=== PATIENT | female | born 1970 | race Caucasian/White ===

== ENCOUNTER 2020-03-01 18:16 | Emergency (ER) | payer OTHER ==
[~2020-03-01] VITALS: Ht 175.3 cm; Wt 68.0 kg
--- OUTSIDE RECORDS SUMMARY | 2020-03-01 18:19 | XMS REPORT | Clinical Summary ---
Author Author [facility] Address Unknown Phone Unavailable Care Team Providers Care Real Estate Associate Name Role Phone Ba Yusuf MD PCP Allergies Comments Active Allergy Reactions Severity Noted Date Penicillins 12/27/2015 Medications Not on file Active Problems Problem Noted Date Anxiety 12/27/2015 Bipolar affective disorder 12/27/2015 Depression 12/27/2015 Dizziness 12/27/2015 Headache 12/27/2015 Upper respiratory infection 12/27/2015 Vertigo 12/27/2015 Social History Date Tobacco Use Types Packs/Day Years Used Never Assessed Sex Assigned at Date Recorded Not on file Industry Job Start Date Occupation Not on file Not on file Not on file Travel End Travel History Travel Start No recent travel history available. Last Filed Vital Signs Not on file Plan of Treatment Not on file Results Not on fileafter 03/01/2019 Advance Directives For more information, please contact: [phone] Patient Shorthand Teacher Explanation Type Date Recorded Advance Directives, 05/18/2016 2:59 AM Living Will and Medical Power of Instructor Pilot
--- OUTSIDE RECORDS SUMMARY | 2020-03-01 18:19 | XMS REPORT | Summary of Care ---
Author Author [facility] - Health Organization [facility] - Health Address Unknown Phone Unavailable Care Team Providers Care Band Saw Marker Name Role Phone Pcp, Patient Does Not Have A PCP [phone] Reason for Visit * Reason Comments Sore Throat Fever Shortness of Breath Encounter Details Care Team Description Date Type Department Unknown, Attending Douglas Alvarez, [facility] [address] [place] [address] [phone] Viral illness (Primary Dx); Exposure to potential infection 12/30/2019 Urgent Care [facility] [address] [place] [phone] Allergies Comments Active Allergy Reactions Severity Noted Date Penicillin Hives 12/30/2019 documented as of this encounter (statuses as of 12/30/2019) Medications No known medicationsdocumented as of this encounter (statuses as of 12/30/2019) Active Problems Problem Noted Date AML (acute myeloid leukemia) 12/30/2019 Anxiety 12/27/2015 Depression 12/27/2015 Vertigo 12/27/2015 Headache 12/27/2015 documented as of this encounter (statuses as of 12/30/2019) Social History Date Tobacco Use Types Packs/Day Years Used Never Smoker Smokeless Tobacco: Never Used Drinks/Week oz/Week Comments Alcohol Use Not Currently Sex Assigned at Date Recorded Not on file Industry Job Start Date Occupation Not on file Not on file Not on file Travel End Travel History Travel Start No recent travel history available. documented as of this encounter Last Filed Vital Signs Reading Time Taken Comments Vital Sign 156/90 12/30/2019 7:45 PM CDT Blood Pressure 78 12/30/2019 7:45 PM CDT Pulse 36.8 C (98.3 F) 12/30/2019 7:45 PM CDT Temperature 22 12/30/2019 7:45 PM CDT Respiratory Rate 100% 12/30/2019 7:45 PM CDT Oxygen Saturation - - Inhaled Oxygen Concentration 81.1 kg (178 lb 12.7 oz) 12/30/2019 7:45 PM CDT Weight - - Height - - Body Mass Index documented in this encounter Progress Notes * Douglas Alvarez, [employer] - 12/30/2019 7:30 PM CDT Cc: Chief Complaint Patient presents with Sore Throat Fever Shortness of Breath Sabrina Whitlock is a 49 year old female who presents to c/o fever t max 103 w ith associated symptoms of decreased appetite, chills, congestion, sore throat, SOB, body aches, & N/V. Pt denies exposure to sick contacts or known persons with COVID. SUBJECTIVE CC: Sore Throat; Fever; and Shortness of Breath PCP : PATIENT DOES NOT HAVE A PCP Fever Max temp prior to arrival: 103 Temp source: Oral Severity: Severe Onset quality: Gradual Duration: 2 days Timing: Intermittent Progression: Waxing and waning Chronicity: New Relieved by: Acetaminophen and ibuprofen Worsened by: Nothing Ineffective treatments: Electrolyte drinks Associated symptoms: chills, congestion, myalgias, nausea, sore throat and vomit ing Associated symptoms: no chest pain, no cough, no diarrhea, no ear pain, no heada ches, no rash and no rhinorrhea Risk factors: immunosuppression Risk factors: no recent travel and no sick contacts Allergies Sabrina is allergic to penicillin. Medications No outpatient medications prior to visit. No facility-administered medications prior to visit. Histories Past Medical History: Diagnosis Date AML (acute myeloid leukemia) Anxiety Depression Vertigo Past Surgical History: Procedure Laterality Date APPENDECTOMY HYSTERECTOMY OTHER Partial R nephrectomy Social History Socioeconomic History Marital status: Single Spouse name: Not on file Number of children: Not on file Years of education: Not on file Highest education level: Not on file Occupational History Not on file Social Needs Financial resource strain: Not on file Food insecurity: Worry: Not on file Inability: Not on file Transportation needs: Medical: Not on file Non-medical: Not on file Tobacco Use Smoking status: Never Smoker Smokeless tobacco: Never Used Substance and Sexual Activity Alcohol use: Not Currently Drug use: Never Sexual activity: Not Currently Lifestyle Physical activity: Days per week: Not on file Minutes per session: Not on file Stress: Not on file Relationships Social connections: Talks on phone: Not on file Gets together: Not on file Attends evangelical service: Not on file Active member of club or organization: Not on file Attends meetings of clubs or organizations: Not on file Relationship status: Not on file Intimate partner violence: Fear of current or ex partner: Not on file Emotionally abused: Not on file Physically abused: Not on file Forced sexual activity: Not on file Other Topics Concern Not on file Social History Narrative Not on file Family History Problem Relation Age of Onset Hypertension Mother Heart Mother COPD (chronic obstructive pulmonary disease) Mother Alzheimers dementia Mother Cancer Father Review of Systems Constitutional: Positive for appetite change, chills and fever. Negative for act ivity change and fatigue. HENT: Positive for congestion and sore throat. Negative for ear pain, postnasal drip and rhinorrhea. Eyes: Negative for pain, discharge and itching. Respiratory: Positive for shortness of breath. Negative for cough, chest tightne ss and wheezing. Cardiovascular: Negative for chest pain and palpitations. Gastrointestinal: Positive for nausea and vomiting. Negative for abdominal pain, constipation and diarrhea. Genitourinary: Negative for urgency, frequency and difficulty urinating. Musculoskeletal: Positive for myalgias. Negative for back pain and neck pain. Skin: Negative for rash and wound. Neurological: Negative for dizziness, weakness and headaches. Vital Signs BP (!) 156/90 | Pulse 78 | Temp 36.8 C (98.3 F) (Oral) | Resp 22 | Wt 17 8 lb 12.7 oz (81.1 kg) | SpO2 100% Physical Exam Constitutional: She is oriented to person, place, and time. Vital signs are norm al. She appears well-developed and well-nourished. She is active and cooperative . Non-toxic appearance. She does not have a sickly appearance. She appears ill. No distress. HENT: Head: Normocephalic and atraumatic. Right Ear: Hearing, external ear and ear canal normal. No mastoid tenderness. Ty mpanic membrane is not erythematous and not bulging. A middle ear effusion is pr esent. Left Ear: Hearing, external ear and ear canal normal. No mastoid tenderness. Tym panic membrane is not erythematous and not bulging. A middle ear effusion is pre sent. Nose: Rhinorrhea present. Right sinus exhibits no maxillary sinus tenderness and no frontal sinus tenderness. Left sinus exhibits no maxillary sinus tenderness and no frontal sinus tenderness. Mouth/Throat: Uvula is midline, oropharynx is clear and moist and mucous membran es are normal. Eyes: Pupils are equal, round, and reactive to light. Conjunctivae and EOM are n ormal. Neck: Normal range of motion. Neck supple. Cardiovascular: Normal rate and normal heart sounds. Pulmonary/Chest: Effort normal and breath sounds normal. She has no decreased br eath sounds. She has no wheezes. She has no rhonchi. She has no rales. Abdominal: Soft. Bowel sounds are normal. She exhibits no distension. There is n o tenderness. Musculoskeletal: Normal range of motion. Neurological: She is alert and oriented to person, place, and time. Skin: Skin is warm and dry. Nursing note and vitals reviewed. Assessment CRITERIA FOR COVID-[address] [facility] Guidelines: ([email or web address]) Clinical Features & Epidemiologic Risk: 1.Fever or signs/symptoms of lower respiratory illness (e.g. cough or shortness of breath) AND Any person, including health care workers, who has had close cont act with a laboratory-confirmed COVID-19 patient within 14 days of symptom onse t A. No 2. Fever and signs/symptoms of a lower respiratory illness (e.g., cough or short ness of breath) requiring hospitalization AND A history of travel from affected geographic areas within 14 days of symptom onset OR An individual(s) with risk f actors that put them at higher risk of poor outcomes A. No 3.Fever and signs/symptoms of lower respiratory illness (e.g., cough or shortnes s of breath) requiring hospitalization AND No source of exposure has been identi fied A.Yes - Mild ill appearing, NAD noted, VS stable - Decreased appetite, although drinking well, voiding like normal, having regula r bowel movements - Denies travel to [place], [place], [place], [place], [place], [place], or [place] - Denies domestic travel - Denies exposure to sick contacts or known persons with COVID - All staff in appropriate droplet and contact PPE while interacting with patien t. - Influenza Negative - Strept Negative - Denies UTI symptoms, no suprapubic/CVA tenderness - Immunocompromised, no other identified source of fever - Testing sent for COVID-19 Plan 1. Viral illness - POCT FLU A AND B (MOLECULAR) - POCT GRP A STREP (MOLECULAR) 2. Exposure to potential infection - CORONAVIRUS COVID-19 TESTING; Future - Discussed flu/strept results, diagnosis, and treatment plan with pt. All quest ions & concerns were addressed - Pt advised to self quarantine at home until results are back, advised that the y will be notified of the results once received - Pt advised on frequent effective hand washing, use alcohol based hand sanitize r that contains at least 60% alcohol - Pt advised to avoid contact with people & animals until results are received - Pt advised to avoid touching eyes, nose, and mouth with unwashed hands - Pt advised to clean all high risk surfaces - Pt advised will need to wear a face mask when around others/pets - Pt advised to increase fluid intake, ensure to stay hydrated, and get plenty o f rest - "What to do if you are sick with COVID-19" CDC information guide reviewed with the patient and handout given to patient - Pt advised to take OTC antihistamine, decongestant, nasal spray, or cough medi cations as per label recommendations for relieve of allergy symptoms, reduce swe lling in the nose, lessen the amount of mucus, and suppress cough - Pt advised to take OTC medication of choice as per label recommendation as nee ded for pain or fever - Pt verbalized understanding of all instructions FOLLOW UP Pt advised to call 911 or go to the nearest Emergency Department sooner for any worsening, persistent, or concerning symptoms ER precautions given Barriers to care: none Ability to manage care: good Plan of care, goals and medications discussed with patient. Patient voices under standing. This visit did not involve counseling and coordination that comprised more than 50% of the visit time. JÚNIOR Rand 12/30/2019 08:45 PM * Delmi Domingo MA - 12/30/2019 7:30 PM CDT Sabrina Whitlock is a 49 year old female is here for shortness of breath, fever,d ry cough,bodyaches and sore throat. Allergies reviewded and provider will review meds. Physician was notified of pain level. documented in this encounter Plan of Treatment Order Schedule Name Type Priority Associated Diag noses Expected: 12/30/2019, Expires: 1 CORONAVIRUS COVID-19 LAB Routine Exposure to potential TESTING infection Health Maintenance Due Date Last Done Comments DTaP,Tdap,and Td Vaccines 02/21/1983 (1 - Tdap) PAP SMEAR 02/21/1993 Breast Cancer Screening 2012 (MAMMOGRAM) INFLUENZA VACCINE (#1) 2019 PNEUMOCOCCAL 0-64 YEARS Aged Out No longer elig ible based COMBINED SERIES on patient's age to complete this topic documented as of this encounter Procedures Comments Procedure Name Priority Date/Time Associated Diag nosis POCT FLU A AND B Routine 12/30/2019 Viral illness (MOLECULAR) POCT GRP A STREP Routine 12/30/2019 Viral illness (MOLECULAR) documented in this encounter Results * POCT GRP A STREP (MOLECULAR) (12/30/2019) POCT GP A STREP negative Negative - Negative Specimen Swab - THROAT * POCT FLU A AND B (MOLECULAR) (12/30/2019) POCT INFLUENZA negative Negative - Negative A POCT INFLUENZA negative Negative - Negative B Specimen Swab documented in this encounter Visit Diagnoses Diagnosis Viral illness - Primary Unspecified viral infection, in conditi ons classified elsewhere and of unspecified site Exposure to potential infection Contact with or exposure to unspecified communicable disease documented in this encounter Insurance Type Payer Benefit Subscriber ID Effective Phone Address Plan / Dates Group HMO/PPO/POS COMMERCIAL NON-CONTRACT COMMERCIAL [id number] 19 20-P GENERIC NON-CONTRA resent CT GENERIC documented as of this encounter
--- OUTSIDE RECORDS SUMMARY | 2020-03-01 18:19 | XMS REPORT | Summary of Care ---
Author Author [facility] - Health Organization [facility] - Health Address Unknown Phone Unavailable Care Team Providers Care Chief Gauger Name Role Phone Pcp, Patient Does Not Have A PCP Reason for Visit * Reason Comments Rx Concern/Question Encounter Details Care Team Description Date Type Department Douglas Alvarez, [facility] [address] [place] [address] [phone] Rx Concern/Question 12/31/2019 Telephone [facility] [facility] [address] [place] [address] Allergies Comments Active Allergy Reactions Severity Noted Date Penicillin Hives 12/30/2019 documented as of this encounter (statuses as of 12/31/2019) Medications No known medicationsdocumented as of this encounter (statuses as of 12/31/2019) Active Problems Problem Noted Date AML (acute myeloid leukemia) 12/30/2019 Anxiety 12/27/2015 Depression 12/27/2015 Vertigo 12/27/2015 Headache 12/27/2015 documented as of this encounter (statuses as of 12/31/2019) Social History Date Tobacco Use Types Packs/Day [...] of this encounter Last Filed Vital Signs Not on filedocumented in this encounter Plan of Treatment Health Maintenance Due Date Last Done Comments DTaP,Tdap,and Td Vaccines 02/21/1983 (1 - Tdap) PAP SMEAR 02/21/1993 Breast Cancer Screening 2012 (MAMMOGRAM) INFLUENZA VACCINE (#1) 2019 PNEUMOCOCCAL 0-64 YEARS Aged Out No longer elig ible based COMBINED SERIES on patient's age to complete this topic documented as of this encounter Results Not on filedocumented in this encounter Insurance Type Payer Benefit Subscriber ID Effective Phone Address Plan / Dates Group HMO/PPO/POS COMMERCIAL NON-CONTRACT COMMERCIAL [id number] 19 20-P GENERIC NON-CONTRA resent CT GENERIC documented as of this encounter
--- OUTSIDE RECORDS SUMMARY | 2020-03-01 18:19 | XMS REPORT | Summary of Care ---
Author Author [facility] - Health Organization [facility] - Health Address Unknown Phone Unavailable Care Team Providers Care Gas Singer Name Role Phone Pcp, Patient Does Not Have A PCP [phone] Reason for Visit * Reason Comments Rx Concern/Question Encounter Details Care Team Description Date Type Department Douglas Alvarez, [facility] [address] [place] [address] [phone] Rx Concern/Question 12/31/2019 Telephone [facility] [employer] [facility] Urgent Care [address] [place] [address] Allergies Comments Active Allergy Reactions [...] / Dates Group HMO/PPO/POS COMMERCIAL NON-CONTRACT COMMERCIAL [id number] 19 20-P GENERIC NON-CONTRA resent CT GENERIC documented as of this encounter
--- OUTSIDE RECORDS SUMMARY | 2020-03-01 18:19 | XMS REPORT ---
Author Author [facility] Organization [facility] Address [address] [place] [address] Phone Unavailable Care Team Providers Care Vocational Rehabilitation Counselor Name Role Phone Paramjit ALLISON, Brody Cosme PCP Jenn Da Silva Attphys [phone] Payers Payer Name Policy Type Policy Number Effective Date Expiration Date S ource Problems Condition Name Condition Details Condition Category Status Onset Date Resolution Date Last Treatment Date Treating Clinician Comments Source Anxiety Anxiety Disease Active 2015-12-27 00:00:00 Romie Schwartz Bipolar affective disorder Bipolar affective disorder Disease Active 2015-12-27 00:00:00 Romie Herron Depression Depression Disease Active 2015-12-27 00:00:00 Romie Schwartz Dizziness Dizziness Disease Active 2015-12-27 00:00:00 Romie Schwartz Headache Headache Disease Active 2015-12-27 00:00:00 Romie Schwartz Upper respiratory infection Upper respiratory infection Disease Active 2015-12-27 00:00:00 Romie Schwartz Vertigo Vertigo Disease Active 2015-12-27 00:00:00 Romie Schwartz Allergies, Adverse Reactions, Alerts Allergy Name Allergy Type Status Severity Reaction(s) Onset Date Inacti ve Date Treating Clinician Comments Source Penicillins DA Active SV 2019-09-09 00:00:00 [facility] No Known Allergies DA Active U 2019-04-19 00:00:00 [facility] Penicillins Propensity to adverse reactions to drug Active 2015-12-27 00:00:00 [facility] Social History Social Habit Start Date Stop Date Quantity Comments Source Sex Assigned At Gabrieal lakhani Lana Medications This patient has no known medications. Procedures This patient has no known procedures. Encounters Start Date/Time End Date/Time [facility] En[facility] ID Source 2019-12-31 00:00:00 2019-12-31 00:00:00 Telephone James khushboo Wilmadivinacarmelina Jenn [facility] [id number] Results Test Description Test Time Test Comments Results Result Comments Source BASIC METABOLIC PANEL 2019-09-09 21:35:00 Test Item SODIUM (test code = NA) 146 mmol/L 136-145 H POTASSIUM (test code = K) 3.4 mmol/L 3.5-5.1 L CHLORIDE (test code = CL) 110.0 mmol/L 98-107 H CARBON DIOXIDE (test code = CO2) 29.0 mmol/L 21-32 N ANION GAP (test code = GAP) 10.4 10-20 N GLUCOSE (test code = GLU) 89 mg/dL 74-106 N BLOOD UREA NITROGEN (test code = BUN) 9 mg/dL 7-18 N GLOMERULAR FILTRATION RATE (test code = GFR) > 60 mL/min >=60 Estimated GFR by using Modified MDRD formula.Chronic kidney disease is defined as either kidney damageor GFR <60 mL/min/1.73 m2 for >3 months. CREATININE (test code = CREAT) 0.90 mg/dL 0.55-1.02 N Note change in reference range due to change in reagent. BUN/CREATININE RATIO (test code = BUN/CREA) 10.6 10-20 N CALCIUM (test code = CA) 9.3 mg/dL 8.5-10.1 N HEPATIC FUNCTION [id number] 21:35:00* Test Item Value Reference Range Interpretation Comments TOTAL PROTEIN (test code = PROT) 7.5 gram/dL 6.4-8.2 N ALBUMIN (test code = ALB) 3.9 g/dL 3.4-5.0 N GLOBULIN (test code = GLOB) 3.6 gram/dL 2.7-4.2 N ALBUMIN/GLOBULIN RATIO (test code = A/G) 1.1 0.75-1.50 N BILIRUBIN TOTAL (test code = BILT) 0.50 mg/dL 0.0-1.0 N BILIRUBIN DIRECT (test code = BILD) 0.16 mg/dL 0.0-0.20 N SGOT/AST (test code = AST) 32 IUnit/L 15-37 N SGPT/ALT (test code = ALT) 51 IUnit/L 12-78 N ALKALINE PHOSPHATASE TOTAL (test code = ALKP) 112 IUnit/L 45-117 N Note change in reference range due to change in reagent. [id number] 21:35:00* Test Item Value Reference Range Interpretation Comments LIPASE (test code = LIP) 96 U/L 73.0-393.0 N HCG SERUM [id number] 21:35:00* Test Item Value Reference Range Interpretation Comments HCG SERUM QUAL (test code = HCGQL) NEGATIVE NEGATIVE This HCGQL test is NOT applicable for MALE patients.Check with nurse about probable order error.If Tumor Marker Test needed, nurse should order test "HCGTU"(Test #550.60481) [id number] 21:35:00* Test Item Value Reference Range Interpretation Comments TROPONIN-I (test code = TROPI) <0.015 ng/mL 0-0.045 N BASIC METABOLIC [id number] 21:21:00* Test Item Value Reference Range Interpretation Comments SODIUM (test code = NA) 146 mmol/L 136-145 H POTASSIUM (test code = K) 3.4 mmol/L 3.5-5.1 L CHLORIDE (test code = CL) 110.0 mmol/L 98-107 H CARBON DIOXIDE (test code = CO2) mmol/L 21-32 ANION GAP (test code = GAP) 10-20 GLUCOSE (test code = GLU) mg/dL 74-106 BLOOD UREA NITROGEN (test code = BUN) mg/dL 7-18 GLOMERULAR FILTRATION RATE (test code = GFR) mL/min >=60 CREATININE (test code = CREAT) mg/dL 0.55-1.02 BUN/CREATININE RATIO (test code = BUN/CREA) 10-20 CALCIUM (test code = CA) mg/dL 8.5-10.1 HEPATIC FUNCTION [id number] 21:21:00* Test Item Value Reference Range Interpretation Comments TOTAL PROTEIN (test code = PROT) gram/dL 6.4-8.2 ALBUMIN (test code = ALB) g/dL 3.4-5.0 GLOBULIN (test code = GLOB) gram/dL 2.7-4.2 ALBUMIN/GLOBULIN RATIO (test code = A/G) 0.75-1.50 BILIRUBIN TOTAL (test code = BILT) mg/dL 0.0-1.0 BILIRUBIN DIRECT (test code = BILD) mg/dL 0.0-0.20 SGOT/AST (test code = AST) IUnit/L 15-37 SGPT/ALT (test code = ALT) IUnit/L 12-78 ALKALINE PHOSPHATASE TOTAL (test code = ALKP) IUnit/L 45-117 [id number] 21:21:00* Test Item Value Reference Range Interpretation Comments LIPASE (test code = LIP) U/L 73.0-393.0 HCG SERUM [id number] 21:21:00* Test Item Value Reference Range Interpretation Comments HCG SERUM QUAL (test code = HCGQL) NEGATIVE NEGATIVE This HCGQL test is NOT applicable for MALE patients.Check with nurse about probable order error.If Tumor Marker Test needed, nurse should order test "HCGTU"(Test #550.34662) [id number] 21:21:00* Test Item Value Reference Range Interpretation Comments TROPONIN-I (test code = TROPI) ng/mL 0-0.045 BASIC METABOLIC [id number] 21:20:00* Test Item Value Reference Range Interpretation Comments SODIUM (test code = NA) mmol/L 136-145 POTASSIUM (test code = K) mmol/L 3.5-5.1 CHLORIDE (test code = CL) mmol/L 98-107 CARBON DIOXIDE (test code = CO2) mmol/L 21-32 ANION GAP (test code = GAP) 10-20 GLUCOSE (test code = GLU) mg/dL 74-106 BLOOD UREA NITROGEN (test code = BUN) mg/dL 7-18 GLOMERULAR FILTRATION RATE (test code = GFR) mL/min >=60 CREATININE (test code = CREAT) mg/dL 0.55-1.02 BUN/CREATININE RATIO (test code = BUN/CREA) 10-20 CALCIUM (test code = CA) mg/dL 8.5-10.1 HEPATIC FUNCTION [id number] 21:20:00* Test Item Value Reference Range Interpretation Comments TOTAL PROTEIN (test code = PROT) gram/dL 6.4-8.2 ALBUMIN (test code = ALB) g/dL 3.4-5.0 GLOBULIN (test code = GLOB) gram/dL 2.7-4.2 ALBUMIN/GLOBULIN RATIO (test code = A/G) 0.75-1.50 BILIRUBIN TOTAL (test code = BILT) mg/dL 0.0-1.0 BILIRUBIN DIRECT (test code = BILD) mg/dL 0.0-0.20 SGOT/AST (test code = AST) IUnit/L 15-37 SGPT/ALT (test code = ALT) IUnit/L 12-78 ALKALINE PHOSPHATASE TOTAL (test code = ALKP) IUnit/L 45-117 [id number] 21:20:00* Test Item Value Reference Range Interpretation Comments LIPASE (test code = LIP) U/L 73.0-393.0 HCG SERUM [id number] 21:20:00* Test Item Value Reference Range Interpretation Comments HCG SERUM QUAL (test code = HCGQL) NEGATIVE NEGATIVE This HCGQL test is NOT applicable for MALE patients.Check with nurse about probable order error.If Tumor Marker Test needed, nurse should order test "HCGTU"(Test #550.72217) [id number] 21:20:00* Test Item Value Reference Range Interpretation Comments TROPONIN-I (test code = TROPI) ng/mL 0-0.045 CBC W/O [id number] 21:12:00* Test Item Value Reference Range Interpretation Comments WHITE BLOOD CELL (test code = WBC) 7.5 K/mm3 4.5-12.5 N RED BLOOD CELL (test code = RBC) 4.42 mill/mm3 3.7-5.2 N HEMOGLOBIN (test code = HGB) 13.1 gram/dL 11.5-15.5 N HEMATOCRIT (test code = HCT) 39.4 % 36.0-46.0 N MEAN CELL VOLUME (test code = MCV) 89.1 fL 80-98 N MEAN CELL HGB (test code = MCH) 29.6 picogram 27.0-33.0 N MEAN CELL HGB CONCETRATION (test code = MCHC) 33.2 gram/dL 33.0-36. 0 N RED CELL DISTRIBUTION WIDTH (test code = RDW) 12.6 % 11.6-16. 2 N PLATELET COUNT (test code = PLT) 153 K/mm3 150-450 N MEAN PLATELET VOLUME (test code = MPV) 10.3 fL 6.7-11.0 N CBC W/O [id number] 21:09:00* Test Item Value Reference Range Interpretation Comments WHITE BLOOD CELL (test code = WBC) K/mm3 4.5-12.5 RED BLOOD CELL (test code = RBC) mill/mm3 3.7-5.2 HEMOGLOBIN (test code = HGB) 13.1 gram/dL 11.5-15.5 N HEMATOCRIT (test code = HCT) 39.4 % 36.0-46.0 N MEAN CELL VOLUME (test code = MCV) fL 80-98 MEAN CELL HGB (test code = MCH) picogram 27.0-33.0 MEAN CELL HGB CONCETRATION (test code = MCHC) gram/dL 33.0-36. 0 RED CELL DISTRIBUTION WIDTH (test code = RDW) % 11.6-16. 2 PLATELET COUNT (test code = PLT) K/mm3 150-450 MEAN PLATELET VOLUME (test code = MPV) fL 6.7-11.0 - XR CHEST 1 [id number] 21:08:00 FAX: Dejah Liu MD [phone] [place]: [address] St: REG Name: DILCIA GONSALEZ [facility] : [birth year] Age/S: 49/F [address] Unit #: [id number] Loc: [place] [address] Phys: Dejah Liu MD Acct: [id number] Dis Date: Status: REG ER PHONE #: [phone] Exam Date: 09/09/20192101 FAX #: [phone] Reason: WEAKNESS EXAMS: CPT CODE: [id number] XR CHEST 1 V 01895 REASON FOR EXAM: WEAKNESS EXAM ORDER DATE: 09/09/2019 8:22 PM Ordering: Dejah Liu MD Attending:Dejah Liu MD Location: PROCEDURE: - XR CHEST 1 V COMPARISON: FINDINGS: Portable AP frontal view of the chest obtained at 9:02 PM shows clear yeyo ngs without evidence of consolidation. There is no evidence of effusion. T he heart size is within normal limits. Pulmonary vasculatures are unremark able. IMPRESSION: No active disease. at 2107 Reported a nd signed by: Jaxson Morales M.D. CC: Dejah Liu MD Technologist: ILDEFONSO PICHARDO Trnscrd Date/Time/By: 09/09/2019 (2107) : By: MeganVTL Orig Print D/T: S: 09/09/2019 (2111) PAGE 1 Signed Report URINALYSIS COMPLETE 2019-09-09 20:52:00* Test Item Value Reference Range Interpretation Comments UA COLOR (test code = COLU) COLORLESS YELLOW A UA APPEARANCE (test code = APPU) CLEAR CLEAR UA GLUCOSE DIPSTICK (test code = DGLUU) NEGATIVE mg/dL NEGATIVE UA BILIRUBIN DIPSTICK (test code = BILU) NEGATIVE mg/dL NEGATIVE UA KETONE DIPSTICK (test code = KETU) NEGATIVE mg/dL NEGATIVE UA SPECIFIC GRAVITY (test code = SGU) 1.002 1.001-1.035 UA BLOOD DIPSTICK (test code = ASAD) Negative mg/dL NEGATIVE UA PH DIPSTICK (test code = CAMILA) 6.5 5.0-8.0 UA PROTEIN DIPSTICK (test code = PROU) NEGATIVE mg/dL NEGATIVE UA UROBILINIOGEN DIPSTICK (test code = URO) Normal mg/dL NEGATIVE UA NITRITE DIPSTICK (test code = MYKE) NEGATIVE NEGATIVE UA LEUKOCYTE ESTERASE W REFLEX (test code = LEUUR) NEGATIVE Ra/uL NEGATIVE UA WBC (test code = WBCU) 0-5 per HPF 0-5 UA RBC (test code = RBCU) 0-3 per HPF 0-5 UA EPITHELIAL CELLS (test code = EPIU) FEW per HPF FEW UA BACTERIA (test code = BACU) NONE SEEN per HPF NONE Urine Source? Clean CatchURINALYSIS [id number] 20:51:00* Test Item Value Reference Range Interpretation Comments UA COLOR (test code = COLU) COLORLESS YELLOW A UA APPEARANCE (test code = APPU) CLEAR CLEAR UA GLUCOSE DIPSTICK (test code = DGLUU) NEGATIVE mg/dL NEGATIVE UA BILIRUBIN DIPSTICK (test code = BILU) NEGATIVE mg/dL NEGATIVE UA KETONE DIPSTICK (test code = KETU) NEGATIVE mg/dL NEGATIVE UA SPECIFIC GRAVITY (test code = SGU) 1.002 1.001-1.035 UA BLOOD DIPSTICK (test code = ASAD) Negative mg/dL NEGATIVE UA PH DIPSTICK (test code = CAMILA) 6.5 5.0-8.0 UA PROTEIN DIPSTICK (test code = PROU) NEGATIVE mg/dL NEGATIVE UA UROBILINIOGEN DIPSTICK (test code = URO) Normal mg/dL NEGATIVE UA NITRITE DIPSTICK (test code = MYKE) NEGATIVE NEGATIVE UA LEUKOCYTE ESTERASE W REFLEX (test code = LEUUR) NEGATIVE Ra/uL NEGATIVE UA WBC (test code = WBCU) per HPF 0-5 UA RBC (test code = RBCU) per HPF 0-5 UA EPITHELIAL CELLS (test code = EPIU) per HPF Few UA BACTERIA (test code = BACU) per HPF NONE Urine Source? Clean CatchURINALYSIS [id number] 20:51:00* Test Item Value Reference Range Interpretation Comments UA COLOR (test code = COLU) COLORLESS YELLOW A UA APPEARANCE (test code = APPU) CLEAR CLEAR UA GLUCOSE DIPSTICK (test code = DGLUU) NEGATIVE mg/dL NEGATIVE UA BILIRUBIN DIPSTICK (test code = BILU) NEGATIVE mg/dL NEGATIVE UA KETONE DIPSTICK (test code = KETU) NEGATIVE mg/dL NEGATIVE UA SPECIFIC GRAVITY (test code = SGU) 1.002 1.001-1.035 UA BLOOD DIPSTICK (test code = ASAD) Negative mg/dL NEGATIVE UA PH DIPSTICK (test code = CAMILA) 6.5 5.0-8.0 UA PROTEIN DIPSTICK (test code = PROU) NEGATIVE mg/dL NEGATIVE UA UROBILINIOGEN DIPSTICK (test code = URO) Normal mg/dL NEGATIVE UA NITRITE DIPSTICK (test code = MYKE) NEGATIVE NEGATIVE UA LEUKOCYTE ESTERASE W REFLEX (test code = LEUUR) NEGATIVE Ra/uL NEGATIVE UA WBC (test code = WBCU) 0-5 per HPF 0-5 UA RBC (test code = RBCU) per HPF 0-5 UA EPITHELIAL CELLS (test code = EPIU) FEW per HPF FEW UA BACTERIA (test code = BACU) per HPF NONE Urine Source? Clean Catch- CT HEAD/BRAIN W/O [id number] 20:44:00 Name: DILCIA DAILY [facility] : 1970 Age/S: 49 / F [address] [facility] Unit #: [id number] Loc: [place] [address] Phys: Mariposa Liu MD Acct: [id number] Di s Date: Status: PRE ER PHONE #: [phone] Exam Date: 09/09/20192037 FAX #: Reason: dizzy EXAMS: CPT CODE: [id number] CT HEAD/BRAIN W/O CONT 92265 REASON FOR EXAM: dizzy EXAM ORDER DATE: 09/09/2019 8:22 PM Ordering: Dejah Liu MD Attending:Dejah Liu MD Location: PROCEDURE: - CT HEAD/BRAIN W/O CONT COMPARISON: 04/19/2019 FINDINGS: CT images of the brain were obtained without IV contra st. Dose modulation, iterative reconstruction, and/or weight based adjustment of the MA/KV was utilized to reduce the radiation dose to as lo w as reasonably achievable. The brain parenchyma is within normal limits. The cr-white matter delineation is unremarkable. The ventricles, cisterns, and sulci are unremarkable. There is no evidence of hemorrhage, mass, mass effect. There is no evidence of acute or old infarct. The c alvarium is intact. IMPRESSION: Unremarkable brain. at 2044 Reported and signed by: Jaxson Morales M.D. CC: Dejah Boston MD Technologist:KAYLA HEADLEY, RT (R) CT CTDI: DLP: Trnscb Date/Time: 09/09/2019 (2043) tYARY [email or web address] Orig Print D/T: S: 09/09/2019 (2047) PAGE 1 Signed Report - CT HD/BR W W/O [id number] 13:26:00 Name: DILCIA DAILY [facility] : 1970 Age/S: 49 / F [address] [facility] Unit #: [id number] Loc: [place] [address] Phys: Mik Mccullough MD Acct: [id number] Dis Date: Status: REG ER PHONE #: [phone] Exam Date: 04/19/2019 1255 FAX #: [phone] Reason: headahce h/o cancer EXAMS: CPT CODE: [id number] CT HD/BR W W/O CONT 31949 HISTORY: headache h/o cancer TECHNIQUE: Pre- and postcontrast 2.[address] of the head. Examination acquired within 24 hours of arrival. Automated exposure control for dose reduction. COMPARISON: None FINDINGS: No abnormal enhancement. No acute hemorrhage. No CT evidence of acute infarct. No intracranial mass or mass effect. No hydrocephalus. No extra-axial fluid collection. Mild left sphenoid sinus mucosal thickening. Mastoid air cells and middle ear cavities are clear. Orbital contents are unremarkable. Calvarium and skull base are intact. IMPRESSION: No acute intracranial process. No mass or mass effect. No abnormal enhancement. at 1326 Reported and signed by: Adry Stoner D.O. CC: Mik Mccullough MD Technologist:Christal Wahl RT(R),CT CTDI: DLP: Trnscb Date/Time: 04/19/2019 (1326) [email or web address] Orig Print D/T: S: 04/19/2019 (6039) PAGE 1 Signed Report HCG SERUM [id number] 13:19:00* Test Item Value Reference Range Interpretation Comments HCG SERUM BETA (test code = HCG) 5.0 mIU/mL 0-3 H INTERPRETATION:B-HCG LEVELS <5 SHOULD BE CONSIDERED "NEGATIVE." *WHEN BODERLINE RESULTS ARE ENCOUNTERED,PATIENT SAMPLESSHOULD BE REDRAWN 48 HOURS. 0-1 WEEKS AFTER CONCEPTION 5-50 MIU/ML1-2 WEEKS AFTER CONCEPTION 50-500 MIU/ML2-3 WEEKS AFTER CONCEPTION 100 -5,000 MIU/ML3-4 WEEKS AFTER CONCEPTION 500-10,000 MIU/ML4-5 WEEKS AFTER CONCEPTION 1000 -50,000 MIU/ML5-6 WEEKS AFTER CONCEPTION 10,000-100,000 MIU/ML6-8 WEEKS AFTER CONCEPTION 15,000- 200,000 MIU/ML2-3 MONTHS AFTER CONCEPTION 10,000-100,000 MIU/ML BASIC METABOLIC [id number] 12:31:00* Test Item Value Reference Range Interpretation Comments SODIUM (test code = NA) 141 mmol/L 136-145 N POTASSIUM (test code = K) 3.9 mmol/L 3.5-5.1 N CHLORIDE (test code = CL) 108.0 mmol/L 98-107 H CARBON DIOXIDE (test code = CO2) 28.0 mmol/L 21-32 N ANION GAP (test code = GAP) 8.9 10-20 L GLUCOSE (test code = GLU) 85 mg/dL 74-106 N BLOOD UREA NITROGEN (test code = BUN) 8 mg/dL 7-18 N GLOMERULAR FILTRATION RATE (test code = GFR) > 60 mL/min >=60 Estimated GFR by using Modified MDRD formula.Chronic kidney disease is defined as either kidney damageor GFR <60 mL/min/1.73 m2 for >3 months. CREATININE (test code = CREAT) 0.80 mg/dL 0.55-1.02 N Note change in reference range due to change in reagent. BUN/CREATININE RATIO (test code = BUN/CREA) 9.8 10-20 L CALCIUM (test code = CA) 9.4 mg/dL 8.5-10.1 N HCG SERUM [id number] 12:31:00* Test Item Value Reference Range Interpretation Comments HCG SERUM QUAL (test code = HCGQL) POSITIVE NEGATIVE A This HCGQL test is NOT applicable for MALE patients.Check with nurse about probable order error.If Tumor Marker Test needed, nurse should order test "HCGTU"(Test #550.77192) WEAK POSITIVE NOTED ON KIT. [id number] 12:31:00* Test Item Value Reference Range Interpretation Comments TROPONIN-I (test code = TROPI) <0.015 ng/mL 0-0.045 N URINALYSIS [id number] 12:27:00* Test Item Value Reference Range Interpretation Comments UA COLOR (test code = COLU) COLORLESS YELLOW A UA APPEARANCE (test code = APPU) CLEAR CLEAR UA GLUCOSE DIPSTICK (test code = DGLUU) NEGATIVE mg/dL NEGATIVE UA BILIRUBIN DIPSTICK (test code = BILU) NEGATIVE mg/dL NEGATIVE UA KETONE DIPSTICK (test code = KETU) NEGATIVE mg/dL NEGATIVE UA SPECIFIC GRAVITY (test code = SGU) 1.003 1.001-1.035 UA BLOOD DIPSTICK (test code = ASAD) Negative mg/dL NEGATIVE UA PH DIPSTICK (test code = CAMILA) 7.0 5.0-8.0 UA PROTEIN DIPSTICK (test code = PROU) NEGATIVE mg/dL NEGATIVE UA UROBILINIOGEN DIPSTICK (test code = URO) Normal mg/dL NEGATIVE UA NITRITE DIPSTICK (test code = MYKE) NEGATIVE NEGATIVE UA LEUKOCYTE ESTERASE W REFLEX (test code = LEUUR) NEGATIVE Ra/uL NEGATIVE UA WBC (test code = WBCU) 0-5 per HPF 0-5 UA RBC (test code = RBCU) 0-2 #/HPF 0-5 UA EPITHELIAL CELLS (test code = EPIU) Few (2-5/hpf) per HPF FEW UA BACTERIA (test code = BACU) FEW #/HPF NONE Urine Source? Clean CatchBASIC METABOLIC [id number] 12:13:00* Test Item Value Reference Range Interpretation Comments SODIUM (test code = NA) 141 mmol/L 136-145 N POTASSIUM (test code = K) 3.9 mmol/L 3.5-5.1 N CHLORIDE (test code = CL) 108.0 mmol/L 98-107 H CARBON DIOXIDE (test code = CO2) 28.0 mmol/L 21-32 N ANION GAP (test code = GAP) 8.9 10-20 L GLUCOSE (test code = GLU) 85 mg/dL 74-106 N BLOOD UREA NITROGEN (test code = BUN) 8 mg/dL 7-18 N GLOMERULAR FILTRATION RATE (test code = GFR) > 60 mL/min >=60 Estimated GFR by using Modified MDRD formula.Chronic kidney disease is defined as either kidney damageor GFR <60 mL/min/1.73 m2 for >3 months. CREATININE (test code = CREAT) 0.80 mg/dL 0.55-1.02 N Note change in reference range due to change in reagent. BUN/CREATININE RATIO (test code = BUN/CREA) 9.8 10-20 L CALCIUM (test code = CA) 9.4 mg/dL 8.5-10.1 N HCG SERUM [id number] 12:13:00* Test Item Value Reference Range Interpretation Comments HCG SERUM QUAL (test code = HCGQL) NEGATIVE [id number] 12:13:00* Test Item Value Reference Range Interpretation Comments TROPONIN-I (test code = TROPI) <0.015 ng/mL 0-0.045 N BASIC METABOLIC [id number] 12:04:00* Test Item Value Reference Range Interpretation Comments SODIUM (test code = NA) 141 mmol/L 136-145 N POTASSIUM (test code = K) 3.9 mmol/L 3.5-5.1 N CHLORIDE (test code = CL) 108.0 mmol/L 98-107 H CARBON DIOXIDE (test code = CO2) mmol/L 21-32 ANION GAP (test code = GAP) 10-20 GLUCOSE (test code = GLU) mg/dL 74-106 BLOOD UREA NITROGEN (test code = BUN) mg/dL 7-18 GLOMERULAR FILTRATION RATE (test code = GFR) mL/min >=60 CREATININE (test code = CREAT) mg/dL 0.55-1.02 BUN/CREATININE RATIO (test code = BUN/CREA) 10-20 CALCIUM (test code = CA) mg/dL 8.5-10.1 HCG SERUM [id number] 12:04:00* Test Item Value Reference Range Interpretation Comments HCG SERUM QUAL (test code = HCGQL) NEGATIVE [id number] 12:04:00* Test Item Value Reference Range Interpretation Comments TROPONIN-I (test code = TROPI) ng/mL 0-0.045 CBC W/O [id number] 11:48:00* Test Item Value Reference Range Interpretation Comments WHITE BLOOD CELL (test code = WBC) 7.3 K/mm3 4.5-12.5 N RED BLOOD CELL (test code = RBC) 4.93 mill/mm3 3.7-5.2 N HEMOGLOBIN (test code = HGB) 14.9 gram/dL 11.5-15.5 N HEMATOCRIT (test code = HCT) 45.1 % 36.0-46.0 N MEAN CELL VOLUME (test code = MCV) 91.5 fL 80-98 N MEAN CELL HGB (test code = MCH) 30.2 picogram 27.0-33.0 N MEAN CELL HGB CONCETRATION (test code = MCHC) 33.0 gram/dL 33.0-36. 0 N RED CELL DISTRIBUTION WIDTH (test code = RDW) 13.1 % 11.6-16. 2 N PLATELET COUNT (test code = PLT) 197 K/mm3 150-450 N MEAN PLATELET VOLUME (test code = MPV) 10.7 fL 6.7-11.0 N CBC W/O [id number] 11:45:00* Test Item Value Reference Range Interpretation Comments WHITE BLOOD CELL (test code = WBC) K/mm3 4.5-12.5 RED BLOOD CELL (test code = RBC) mill/mm3 3.7-5.2 HEMOGLOBIN (test code = HGB) 14.9 gram/dL 11.5-15.5 N HEMATOCRIT (test code = HCT) 45.1 % 36.0-46.0 N MEAN CELL VOLUME (test code = MCV) fL 80-98 MEAN CELL HGB (test code = MCH) picogram 27.0-33.0 MEAN CELL HGB CONCETRATION (test code = MCHC) gram/dL 33.0-36. 0 RED CELL DISTRIBUTION WIDTH (test code = RDW) % 11.6-16. 2 PLATELET COUNT (test code = PLT) K/mm3 150-450 MEAN PLATELET VOLUME (test code = MPV) fL 6.7-11.0
--- OUTSIDE RECORDS SUMMARY | 2020-03-01 18:19 | XMS REPORT | Summary of Care ---
Author Author [facility] - Health Organization [facility] - Health Address Unknown Phone Unavailable Care Team Providers Care Tax Investigator Name Role Phone Pcp, Patient Does Not Have A PCP [phone] Reason for Visit * Reason Comments Sore Throat Fever Shortness of Breath Encounter Details Care Team Description Date Type Department Unknown, Attending Douglas Alvarez, [facility] [address] [place] [address] [phone] Viral illness (Primary Dx); Exposure to potential infection 12/30/2019 Urgent Care [facility] [address] [place] [phone] Allergies Comments Active Allergy Reactions Severity Noted [...] this encounter Progress Notes * Douglas Alvarez, CAMPAIGN MANAGER - 12/30/2019 7:30 PM CDT Cc: Chief [...] file Gets together: Not on file Attends anabaptist service: Not on file Active member of [...] reviewed. Assessment CRITERIA FOR COVID-19 TESTING Per [facility] Guidelines: ([email or web address]) Clinical Features & Epidemiologic Risk: 1.Fever or [...] - Denies travel to [place], [place], [place], [place], [place], [place], or [place] - [...] / Dates Group HMO/PPO/POS COMMERCIAL NON-CONTRACT COMMERCIAL [id number] 20-P GENERIC NON-CONTRA resent CT GENERIC documented as of this encounter
[2020-03-01] MEDS ORDERED: ONDANSETRON HCL INJ 2MG/ML 2ML 2 MG/ML VIAL IV STA (19:14)
[2020-03-01] MEDS ORDERED: SODIUM CHLORIDE 0.9% 1000ML 1,000 ML IV STA (19:14)
[2020-03-01] MEDS ORDERED: MORPHINE SULFATE 5 MG/ML VIAL IV ONE (19:15)
[2020-03-01] MEDS ORDERED: MORPHINE SULFATE INJ 4 MG/ML INJ 1ML IV ONE (19:30)
[2020-03-01 19:31] LABS: BASOPHILS % 0.5 % (0.0-1.0); EOSINOPHILS # (AUTO) 0.2 (0.0-0.4); HEMATOCRIT 42.5 % (34.2-44.1); HEMOGLOBIN 14.3 g/dL (12.0-16.0); LYMPHOCYTES # (AUTO) 2.1 (1.0-3.2); LYMPHOCYTES % 26.5 % (18.0-39.1); MEAN CORPUSCULAR HEMOGLOBIN 29.5 pg (28-32); MEAN CORPUSCULAR HGB CONC 33.6 g/dL (31-35); MEAN CORPUSCULAR VOLUME 87.6 fL (81-99); MONOCYTES # (AUTO) 0.5 (0.2-0.8); NEUTROPHILS # (AUTO) 5.1 (2.1-6.9); NEUTROPHILS % 64.6 % (38.7-80.0); RED BLOOD COUNT 4.85 x10e6/uL (3.6-5.1)
[2020-03-01 19:41] LABS: ALANINE AMINOTRANSFERASE 47 IU/L (0-55); ALBUMIN/GLOBULIN RATIO 1.3 (0.8-2.0); ALKALINE PHOSPHATASE 105 IU/L (40-150); ANION GAP 14.7 mmol/L (8-16); BLOOD UREA NITROGEN 12 mg/dL (7-26); BUN/CREATININE RATIO 17 (6-25); CALCIUM 9.7 mg/dL (8.4-10.2); CARBON DIOXIDE 25 mmol/L (22-29); CHLORIDE 105 mmol/L (98-107); CREATININE, SERUM 0.71 mg/dL (0.57-1.11); EST GLOMERULAR FILTRATION RATE > 60 ML/MIN (60-); GLUCOSE 84 mg/dL (74-118); POTASSIUM 3.7 mmol/L (3.5-5.1); SODIUM 141 mmol/L (136-145)
[2020-03-01 19:56] LABS: PLATELET MORPHOLOGY COMMENT MOD EDTA CLUMPING; RBC MORPHOLOGY COMMENT NORMAL
[2020-03-01 19:57] LABS: PLATELET ESTIMATE MARKEDLY DECREASED
[2020-03-01 20:04] LABS: CREATINE KINASE 126 IU/L (29-168)
[2020-03-01 20:23] LABS: PLATELET COUNT 179 x10e3/uL (140-360)
--- NOTE | 2020-03-01 20:56 | Emergency Department Note ---
History of Present Illnes History of Present Illness Chief Complaint: Abdominal Complaints History of Present Illness This is a 50 year old female arrived to the ED with 1 month of diffuse abdominal pain, n/v/d and dizziness. Pt states symptoms worsened after having dinner at [employer] yesterdayt Chief Complaint Comment PATIENT IN FROM HOME WITH COMPLAINTS OF WEAKNESS, DIZZINESS, ABDOMINAL PAIN, AND NAUSEA X 1 WEEK; PATIENT RESP EVEN AND NONLABORED, APPEARS IN NO DISTRESS, AMBULATORY WITHOUT ASSISTANCE, RATES PAIN 8/10 . Historian: Patient Arrival Mode: Car Onset (how long ago): day(s) Radiation: non-radiation Onset quality: gradual Duration (how long): week(s) Timing of current episode: constant Progression: unchanged Chronicity: recurrent (1) Past Medical/Family History Physician Review I have reviewed the patient's past medical and family history. Any updates have been documented here. Past Medical History Recent Fever: No Clinical Suspicion of Infectio: No New/Unexplained Change in Ment: No Past Medical History: Cancer, Anemia Other Medical History: AML Past Surgical History: Appendectomy, Hysterectomy, Tubal Ligation Social History Smoking Cessation: Never Smoker Counseling Performed: No Alcohol Use: None Any Illegal Drug Use: No TB Exposure/Symptoms: No Physically hurt or threatened: No Family History Family history of heart diseas: No Other Last Tetanus: UNKNOWN Any Pre-Existing Lines (PICC,: No Is patient up to date on immun: No Last Flu: unk Last Pneumovax: unkj Review of Systems Review of Systems Constitutional: other (dizziness ) EENTM: no symptoms Cardiovascular: no symptoms Respiratory: no symptoms Gastrointestinal: abdominal pain Genitourinary: no symptoms Musculoskeletal: no symptoms Neurological: no symptoms Psychological: no symptoms Endocrine: no symptoms Hematological/Lymphatic: no symptoms Review of other systems All other systems reviewed and negative. Physical Exam Related Data Allergies: Coded Allergies: Penicillins (Verified Allergy, Severe, 03/01/20) Triage Vital Signs Vital Signs Date Time Temp Pulse Resp B/P (MAP) Pulse Ox O2 Delivery O2 Flow Rate FiO2 03/01/20 18:22 98.3 81 18 171/100 97 Vital signs reviewed: Yes Physical Exam CONSTITUTIONAL Constitutional: well-developed, well-nourished HENT HENT: normocephalic, atraumatic, oropharynx clear/moist, nose normal HENT L/R: left ext ear normal, right ext ear normal EYES Eyes: PERRL, conjunctivae normal NECK Neck: ROM normal PULMONARY Pulmonary: effort normal, breath sounds normal CARDIOVASCULAR Cardiovascular: regular rhythm, heart sounds normal, capillary refill normal, normal rate GASTROINTESTINAL Abdominal: soft, nontender, bowel sounds normal GENITOURINARY Genitourinary: exam deferred SKIN Skin: warm, dry MUSCULOSKELETAL Musculoskeletal: ROM normal NEUROLOGICAL Neurological: alert, oriented x 3, no gross motor or sensory deficits PSYCHOLOGICAL Psychological: mood/affect normal, judgement normal Results Laboratory Result Diagram: 03/01/20182903/01/201829 Laboratory Laboratory Tests Test 03/01/20 18:30 White Blood Count 7.82 x10e3/uL (4.8-10.8) Red Blood Count 4.85 x10e6/uL (3.6-5.1) Hemoglobin 14.3 g/dL (12.0-16.0) Hematocrit 42.5 % (34.2-44.1) Mean Corpuscular Volume 87.6 fL (81-99) Mean Corpuscular Hemoglobin 29.5 pg (28-32) Mean Corpuscular Hemoglobin Concent 33.6 g/dL (31-35) Red Cell Distribution Width 13.0 % (11.7-14.4) Neutrophils (%) (Auto) 64.6 % (38.7-80.0) Lymphocytes (%) (Auto) 26.5 % (18.0-39.1) Monocytes (%) (Auto) 6.0 % (4.4-11.3) Eosinophils (%) (Auto) 2.0 % (0.0-6.0) Basophils (%) (Auto) 0.5 % (0.0-1.0) Neutrophils # (Auto) 5.1 (2.1-6.9) Lymphocytes # (Auto) 2.1 (1.0-3.2) Monocytes # (Auto) 0.5 (0.2-0.8) Eosinophils # (Auto) 0.2 (0.0-0.4) Basophils # (Auto) 0.0 (0.0-0.1) Absolute Immature Granulocyte (auto 0.03 x10e3/uL (0-0.1) Platelet Estimate Markedly decreased Platelet Morphology Comment Mod edta clumping Red Cell Morphology Comment Normal Sodium Level 141 mmol/L (136-145) Potassium Level 3.7 mmol/L (3.5-5.1) Chloride Level 105 mmol/L (98-107) Carbon Dioxide Level 25 mmol/L (22-29) Anion Gap 14.7 mmol/L (8-16) Blood Urea Nitrogen 12 mg/dL (7-26) Creatinine 0.71 mg/dL (0.57-1.11) Estimat Glomerular Filtration Rate > 60 ML/MIN (60-) BUN/Creatinine Ratio 17 (6-25) Glucose Level 84 mg/dL (74-118) Calcium Level 9.7 mg/dL (8.4-10.2) Total Bilirubin 0.5 mg/dL (0.2-1.2) Aspartate Amino Transf (AST/SGOT) 34 IU/L (5-34) Alanine Aminotransferase (ALT/SGPT) 47 IU/L (0-55) Alkaline Phosphatase 105 IU/L (40-150) Creatine Kinase MB 2.90 ng/mL (0-5.0) Troponin I < 0.001 ng/mL (0-0.300) Total Protein 7.2 g/dL (6.5-8.1) Albumin 4.0 g/dL (3.5-5.0) Globulin 3.2 g/dL (2.3-3.5) Albumin/Globulin Ratio 1.3 (0.8-2.0) Lipase 19 U/L (8-78) Lab results reviewed: Yes Imaging Imaging results reviewed: Yes Impressions CONCLUSION: Mild hepatic steatosis. Moderate amount of stool in the colon. IMPRESSION: No abnormalities . Signed by: DR Shun Bustillos M.D. 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 Assessment & Plan Assessment & Plan Problems: (1) Abdominal pain (2) Constipation Reassessment Reassessment Pt re-evaluated at bedside, reports improvement in symptoms. Discussed CT findings of constipation- prescription for colace given. Pt stable for D/C. This patient presents with abdominal pain of unclear etiology. A CT scan was performed to evaluate for potential causes of the abdominal pain, however, neither the clinical exam nor the CT has identified an emergent etiology for the abdominal pain. Specifically, given the benign exam, the laboratory studies, and unremarkable CT, I have a very low suspicion for appendicitis, ischemic bowel, bowel perforation, or any other life threatening disease. I have discussed with the patient the level of uncertainty with undifferentiated abdominal pain and clearly explained the need to follow-up as noted on the discharge instructions, or return to the Emergency Department immediately if the pain worsens, develops fever, persistent and uncontrollable vomiting, or for any new symptoms or concerns. Depart Disposition: HOME, SELF-CARE Last Vital Signs Date Time Temp Pulse Resp B/P (MAP) Pulse Ox O2 Delivery O2 Flow Rate FiO2 03/01/20 19:17 71 20 155/95 97 03/01/20 18:22 98.3 Home Meds Active Scripts Ondansetron Hcl* (ZOFRAN*) 4 Mg Tablet, 4 MG PO Q6HR PRN for NAUSEA AND VOMITING, #14 Prov:MANOLO AJ DO 03/01/20 Docusate Sodium (COLACE) 100 Mg Cap, 100 MG PO DAILY, #14 CAP Prov:MANOLO AJ DO 03/01/20 Medications in the ED Sodium Chloride 1,000 ml @ 0 mls/hr Q0M STAT IV Last administered on 03/01/20at 19:40; Admin Dose 999 MLS/HR; Start 03/01/20 at 19:14; Stop 03/01/20 at 19:15 Morphine Sulfate 4 mg ONCE ONCE IV ; Start 03/01/20 at 19:15; Stop 03/01/20 at 19:16; Status UNV Ondansetron HCl 4 mg NOW STAT IV Last administered on 03/01/20at 19:40; Admin Dose 4 MG; Start 03/01/20 at 19:14; Stop 03/01/20 at 19:15 Morphine Sulfate 4 mg ONCE ONCE IV Last administered on 03/01/20at 19:40; Admin Dose 4 MG; Start 03/01/20 at 19:30; Stop 03/01/20 at 19:31 MANOLO AJ DO March 01, 2020 20:56
[2020-03-01 21:14] LABS: CLARITY,URINE CLEAR (CLEAR); COLOR,URINE YELLOW (YELLOW); LEUKOCYTE ESTERASE ,URINE NEGATIVE (NEGATIVE); NITRITE,URINE NEGATIVE (NEGATIVE)
[2020-03-01 21:15] LABS: BILIRUBIN,URINE NEGATIVE (NEGATIVE); KETONES,URINE NEGATIVE (NEGATIVE); PROTEIN,URINE DIPSTICK NEGATIVE (NEGATIVE); URINE UROBILINOGEN 0.2 mg/dL (0.2 - 1)
[2020-03-01] MEDS ORDERED: SODIUM CHLORIDE 0.9% 50ML 50 ML ONE (21:20)
[2020-03-01] MEDS ORDERED: IOPAMIDOL 370 MG/ML 200 ML INFUS..BTL INJ ONE (21:20)
--- NOTE | 2020-03-01 21:27 | Diagnostic Imaging Report ---
History: Dizziness, nausea Comparison studies: None Technique: Axial images were obtained from the skull base to the vertex. Coronal and sagittal reconstructions obtained from the axial data. Dose modulation, iterative reconstruction, and/or weight based adjustment of the mA/kV was utilized to reduce the radiation dose to as low as reasonably achievable. Findings: Scalp/skull: No abnormalities. No fractures, blastic or lytic lesions. Extra-axial spaces: No masses. No fluid collections. Brain sulci: Appropriate for age. Ventricles: Normal in size and configuration. No hydrocephalus. Parenchyma: No abnormal densities. No masses, hemorrhage, acute or chronic cortical vascular insults. Sellar/suprasellar region: No abnormalities Craniocervical junction: Patent foramen magnum. No Chiari one malformation. IMPRESSION: No abnormalities . Signed by: DR Shun Bustillos M.D. on 03/01/2020 9:24 PM
--- NOTE | 2020-03-01 22:02 | Diagnostic Imaging Report ---
EXAM: CT Abdomen and Pelvis WITH contrast INDICATION: Abdominal Pain, weakness, dizziness, nausea. COMPARISON: None. TECHNIQUE: Abdomen and pelvis were scanned utilizing a multidetector helical scanner from the lung base to the pubic symphysis after administration of IV contrast. Coronal and sagittal reformations were obtained. Routine protocol was performed. Scan was performed during portal venous phase. IV CONTRAST: 100 cc of Isovue-370. ORAL CONTRAST: None COMPLICATIONS: None RADIATION DOSE: Total DLP: 342 mGy*cm Estimated effective dose: (DLP x 0.015 x size factor) mSv CTDIvol has been reviewed. It is below the limits set by the Radiation Protocol Committee (RPC). FINDINGS: LINES and TUBES: None. LOWER THORAX: Mild patchy dependent atelectasis. Small hiatal hernia. HEPATOBILIARY: Mild hepatic steatosis. A 0.7 cm right hepatic lobe hypodensity is too small to characterize, but may represent a cyst. No biliary ductal dilation. GALLBLADDER: No radio-opaque stones or sludge. No wall thickening. SPLEEN: No splenomegaly. PANCREAS: No focal masses or ductal dilatation. ADRENALS: No adrenal nodules KIDNEYS/URETERS: Kidneys enhance symmetrically. No evidence of hydronephrosis, solid mass, or stone. Subcentimeter left midpole renal hypodensity is too small to characterize, but likely represents a cyst. GI TRACT: No evidence of wall thickening or distension. Status post appendectomy. PELVIC ORGANS/BLADDER: Status post hysterectomy. Bilateral calcified pelvic phleboliths. LYMPH NODES: No lymphadenopathy. VESSELS: Mild atherosclerotic calcifications in the right common iliac artery. PERITONEUM / RETROPERITONEUM: No free air or fluid. BONES AND SOFT TISSUES: No acute osseous abnormality. Moderate-sized fat-containing supraumbilical ventral abdominal wall hernia without inflammatory changes. CONCLUSION: Mild hepatic steatosis. Moderate amount of stool in the colon. Signed by: Dr. Rama Portillo MD on 03/01/2020 9:59 PM
[2020-03-01] MEDS ORDERED: COLACE100 MG PO (22:10)
[2020-03-01] MEDS ORDERED: ZOFRAN4 MG PO (22:10)
[2020-03-01 22:48] VITALS: BP 142/89
[2020-03-01] MEDS ORDERED: ULTRAM50 MG PO (22:50)
== END 2020-03-01 22:55 | disposition home or self-care (01) ==
LOC: ER 18:16
DX: R10.9 Unspecified abdominal pain (principal); R11.2 Nausea with vomiting, unspecified; R19.7 Diarrhea, unspecified; K59.00 Constipation, unspecified; R42 Dizziness and giddiness; Z85.9 Personal history of malignant neoplasm, unspecified
CPT/HCPCS: 36415; 70450; 74177; 80053; 81001; 82550; 82553; 83690; 84484; 85025; 93005; 99284; J2270; J2405; J7030; Q9967